=== PATIENT | female | born 1960 | race African-American/Black ===

== ENCOUNTER 2022-06-19 18:16 | Emergency (ER) | payer OTHER ==
[~2022-06-19] VITALS: Ht 170.2 cm; Wt 86.2 kg
[~2022-06-19 18:16] MED LIST: AMLO5TAB4 PO; CARI350T PO; FENTANYL PATCH
[2022-06-19] MEDS ORDERED: SODIUM BICARBONATE 4.2 % (NEUT) 5 ML VIAL ONE (18:50)
[2022-06-19] MEDS ORDERED: LIDOCAINE HCL 2% 20 ML VIAL ONE (18:50)
[2022-06-19] MEDS: LIDOCAINE HCL 2% 20 ML VIAL IJ ONE (18:52)
[2022-06-19] MEDS: SODIUM BICARBONATE 4.2 % (NEUT) 5 ML VIAL IJ ONE (18:52)
[2022-06-19] MEDS ORDERED: CEPH500T PO (19:08)
[2022-06-19] MEDS ORDERED: CEphaleXIN 500 MG CAPSULE ONE (19:18)
[2022-06-19] MEDS: CEphaleXIN 500 MG CAPSULE PO ONE (19:21)
--- NOTE | 2022-06-19 19:23 | NUR ---
Patient discharged to home in stable condition. Written and verbal after care instructions given. Patient verbalizes understanding of instructions. Stressed follow up or return to ER for worsening s/s.
== END 2022-06-19 19:39 | disposition home or self-care (01) ==
LOC: ER 18:21
DX: S00.452A Superficial foreign body of left ear, initial encounter (principal); X58.XXXA Exposure to other specified factors, initial encounter; Y92.89 Other specified places as the place of occurrence of the external cause; I10 Essential (primary) hypertension; Z88.2 Allergy status to sulfonamides
CPT/HCPCS: 99284; 10120; J3490 ×2; A4663